=== PATIENT | female | born 1960 | race Caucasian/White ===

== ENCOUNTER → 2021-10-06 | Outpatient (CLI) | payer OTHER ==
--- NOTE | 2021-10-07 07:47 | RAD ---
EXAM: ULTRASOUND PELVIS INDICATION: THICKENED ENDOMETRIUM. Post menopause. COMPARISON: None available. TECHNIQUE: Transabdominal and transvaginal sonography was performed. FINDINGS: The uterus measures 9.2 x 5.3 x 4.0 cm. The endometrium measures 0.7 cm. Possible intramural fibroid measuring up to 2 cm. The right ovary measures 2.0 x 1.1 x 1.2 cm. Right ovary has appropriate color and spectral Doppler flow. The left ovary was not visualized, obscured by bowel. There is no free fluid. IMPRESSION: Endometrium measures up to 7 mm which is at the upper limit of normal for a postmenopausal woman. Electronically signed by: Darnell Mcfarland MD (10/06/2021 2:03 PM) [id number]
--- NOTE | 2021-10-07 07:47 | RAD ---
EXAM: ULTRASOUND ABDOMEN COMPLETE CLINICAL HISTORY: Low abdominal pain COMPARISON: None available. TECHNIQUE: Ultrasound of the upper abdomen was performed. FINDINGS: The head and body of the pancreas are unremarkable. The tail is obscured by intestinal gas.. The liver measures 13.8 in length in the right mid clavicular line. The hepatic margin is smooth and the hepatic echogenicity is normal. There are no focal liver lesions. Flow seen within the portal v eins. The gallbladder is normal in appearance without evidence for cholelithiasis. There is no wall thicke derrek or pericholecystic fluid. There is no pain with direct transducer pressure over the gallbladder . The common bile duct measures 3 mm. The spleen measures 6.8 cm. The right kidney measures 11.8 in bipolar length. Normal renal cortical echotexture and thickness. No focal renal lesion, hydronephrosis or shadowing renal calculus. The left kidney measures 11.6 in bipolar length. Normal renal cortical echotexture and thickness. No focal renal lesion, hydronephrosis or shadowing renal calculus. Visualized portions of the abdominal aorta and inferior vena cava are unremarkable. There is no free fluid in the upper abdomen. IMPRESSION: Normal abdominal ultrasound. Electronically signed by: Darnell Mcfarland MD (10/06/2021 2:12 PM) [id number]
== END ==
LOC: US 07:03
PROVIDERS: ATTEND Internal Medicine Gastroenterology
DX: R10.30 Lower abdominal pain, unspecified (principal); R93.89 Abnormal findings on diagnostic imaging of other specified body structures
CPT/HCPCS: 76700; 76830; 76856